=== PATIENT | female | born 1985 | race Caucasian/White ===

== ENCOUNTER 2018-02-27 16:21 | Emergency (ER) | payer OTHER ==
--- NOTE | 2018-02-27 17:47 | ERPHSYRPT ---
- History of Present Illness Historian: patient Exam Limitations: no limitations Patient Subjective Stated Complaint: Pt states for the last month she has intermittent pelvic pain. For the last 2 days her pain has been severe. She had an appt with her PCP today but the office had to cancel. She went to [facility] and they did a UA and a urine test. Both were negative. She states that she has always had irregular periods. She is concerned she might have PCOS. She also states that she has had abnormal paps in the past but has not had one for 3 years. She had a LEEP procedure done in 2009. Pt also states that she has had a loss of appetite and nausea. Denies any constipation, diarrhea, or vomiting. Pt also reports some pain with sex. Last time she had intercourse was Friday. Triage Nursing Assessment: Pt alert and oriented x3. skin pink warm and dry. afebrile. abdomen round, soft, and nontender. bowel sounds present x4 Timing/Duration: week(s) (4) Activities at Onset: none Quality: aching Abdominal Pain Onset Location: RLQ, LLQ Pain Radiation: no radiation Severity of Pain-Max: moderate Severity of Pain-Current: moderate Modifying Factors: Improves With: nothing Associated Symptoms: No back, No fever/chills, No nausea, No vomiting Previous symptoms: no prior history Hx Tetanus, Diphtheria Vaccination/Date Given: No Hx Influenza Vaccination/Date Given: No Hx Pneumococcal Vaccination/Date Given: No <AMI VILLAVICENCIO - Last Filed: 02/27/18 18:52> <LIAN LOPEZ - Last Filed: 02/27/18 21:07> - History of Present Illness Time Seen by Provider: 02/27/18 17:32 Physician History: The patient is a 32-year-old morbidly obese female complaining of intermittent bilateral pelvic pain for the last month. It has worsened over the last 2 days. She thought maybe she was because she has unprotected intercourse. She has never been . She took 2 home tests that were -2 days ago. She has been very emotional and mood is a last month. She was supposed to see her primary medical doctor today at 3:30 but could not see her due to the doctor having a flat tire. She went to see [facility] and they did minimal testing and says her here. The patient is concerned because she is obese and cannot get that she may have polycystic ovarian disease. She has irregular periods. At times she will have a monthly menstrual period for 2-3 months and then not have any menstrual periods for another 2-3 months. She has not seen a farm equipment mechanic for 3 years. She's had cervical cancer and a LEEP procedure. She denies fever or chills. She denies problems with urination. She would prefer to have a female doctor do an examination. (AMI VILLAVICENCIO) Allergies/Adverse Reactions: No Known Drug Allergies Allergy (Unverified 02/27/18 16:52) - Review of Systems Constitutional: No Fever, No Chills Eyes: No Symptoms Ears, Nose, & Throat: No Symptoms Respiratory: No Cough, No Dyspnea Cardiac: No Chest Pain, No Edema, No Syncope Abdominal/Gastrointestinal: Abdominal Pain, No Nausea, No Vomiting, No Diarrhea Genitourinary Symptoms: No Dysuria Musculoskeletal: No Back Pain, No Neck Pain Skin: No Rash Neurological: No Dizziness, No Focal Weakness, No Sensory Changes Psychological: No Symptoms Endocrine: No Symptoms Hematologic/Lymphatic: No Symptoms Immunological/Allergic: No Symptoms All Other Systems: Reviewed and Negative <AMI VILLAVICENCIO - Last Filed: 02/27/18 18:52> - Past Medical History Pertinent Past Medical History: Yes Cardiac History: Hypertension Psycho-Social History: Depression Other Medical History: cervical cancer cells - Past Surgical History Past Surgical History: Yes Other Surgical History: LEEP - Social History Smoking Status: Light tobacco smoker Exposure to second hand smoke: Yes Drug Use: none Patient Lives Alone: Yes - Female History Hx Last Menstrual Period: January 17, 2018 Hx Now: No <AMI VILLAVICENCIO - Last Filed: 02/27/18 18:52> - Physical Exam General Appearance: no apparent distress, alert Eye Exam: PERRL/EOMI, eyes nml inspection Ears, Nose, Throat Exam: normal ENT inspection, pharynx normal, moist mucous membranes Neck Exam: normal inspection, non-tender, supple, full range of motion Respiratory Exam: normal breath sounds, lungs clear, No respiratory distress Cardiovascular Exam: regular rate/rhythm, normal heart sounds Gastrointestinal/Abdomen Exam: tenderness (mild tenderness in LLQ and RLQ), other (obese) Pelvic Exam: not done Rectal Exam: not done Back Exam: normal inspection, normal range of motion, No CVA tenderness, No vertebral tenderness Extremity Exam: normal inspection, normal range of motion, pelvis stable Neurologic Exam: alert, oriented x 3, cooperative, normal mood/affect, nml cerebellar function, sensation nml, No motor deficits Skin Exam: normal color, warm, dry SpO2 Interpretation: normal SpO2: 94 Oxygen Delivery: Room Air <VILLAVICENCIOAMI BharathMarcus - Last Filed: 02/27/18 18:52> - Nursing Vital Signs Nursing Vital Signs: Initial Vital Signs Temperature 98.7 F 02/27/18 16:38 Pulse Rate 85 02/27/18 16:38 Respiratory Rate 18 02/27/18 16:38 Blood Pressure 170/104 02/27/18 16:38 O2 Sat by Pulse Oximetry 94 L 02/27/18 16:38 Pain Scale Pain Intensity 6 - Course Nursing assessment & vital signs reviewed: Yes <LIAN LOPEZ - Last Filed: 02/27/18 21:07> Ordered Tests: Active Orders 24 hr Category Date Time Status IV Insertion STAT Care 02/27/18 17:53 Active ABDOMEN AND PELVIS W/0 CONTRAS [CT] Stat Exams 02/27/18 18:51 Taken CBC W DIFF Stat Lab 02/27/18 18:05 Completed CMP Stat Lab 02/27/18 18:05 Completed CULTURE,URINE Stat Lab 02/27/18 21:00 Received HCG QUALITATIVE,SERUM Stat Lab 02/27/18 18:05 Completed LIPASE Stat Lab 02/27/18 18:05 Completed UA W/ MICROSCOPIC Stat Lab 02/27/18 21:00 Completed Urine Triage Profile Stat Lab 02/27/18 20:39 Ordered Medication Summary Discontinued Medications Generic Name Dose Route Start Last Admin Trade Name Johnq PRN Reason Stop Dose Admin Acetaminophen 975 mg 02/27/18 17:53 02/27/18 18:10 Tylenol 325 Mg PO 02/27/18 17:54 975 mg STAT ONE Administration Acetaminophen Confirm 02/27/18 17:59 Tylenol 325 Mg Administered 02/27/18 18:00 Dose 975 mg .ROUTE .STK-MED ONE Sodium Chloride 1,000 mls @ 999 mls/hr 02/27/18 17:53 02/27/18 18:12 Sodium Chloride 0.9% 1000 Ml IV 02/27/18 18:53 999 mls/hr .Q1H1M STA Administration Sodium Chloride Confirm 02/27/18 17:59 Sodium Chloride 0.9% 1000 Ml Administered 02/27/18 18:00 Dose 1,000 mls @ ud .ROUTE .[facility] ONE Ketorolac Tromethamine 30 mg 02/27/18 20:25 02/27/18 20:31 Toradol 30 Mg Injection IV 02/27/18 20:26 30 mg STAT ONE Administration Ketorolac Tromethamine Confirm 02/27/18 20:30 Toradol 30 Mg Injection Administered 02/27/18 20:31 Dose 30 mg .ROUTE .[facility] ONE Lab/Rad Data: Laboratory Result Diagrams 02/27/18 18:05 02/27/18 18:05 Laboratory Results 02/27/18 02/27/18 02/27/18 Range/Units 21:00 18:05 18:05 WBC (4.0-10.5) K/mm3 RBC (4.1-5.4) M/mm3 Hgb (12.0-16.0) gm/dl Hct (35-47) % MCV (78-100) fl MCH (26-32) pg MCHC (32-36) g/dl RDW (11.5-14.0) % Plt Count (150-450) K/mm3 MPV (6-9.5) fl Gran % (36.0-66.0) % Eos # (Auto) (0-0.5) Absolute Lymphs (auto) (1.0-4.6) Absolute Monos (auto) (0.0-1.3) Lymphocytes % (24.0-44.0) % Monocytes % (0.0-12.0) % Eosinophils % (0.00-5.0) % Basophils % (0.0-0.4) % Absolute Granulocytes (1.4-6.9) Basophils # (0-0.4) Sodium 144 (137-145) mmol/L Potassium 3.9 (3.5-5.1) mmol/L Chloride 105 (98-107) mmol/L Carbon Dioxide 27 (22-30) mmol/L Anion Gap 15.8 H (5-15) MEQ/L BUN 12 (7-17) mg/dL Creatinine 0.56 (0.52-1.04) mg/dL Estimated GFR > 60.0 ML/MIN Glucose 90 (74-106) mg/dL Calcium 9.7 (8.4-10.2) mg/dL Total Bilirubin 0.30 (0.2-1.3) mg/dL AST 27 (14-36) U/L ALT 29 (0-35) U/L Alkaline Phosphatase 122 (38-126) U/L Serum Total Protein 8.9 H (6.3-8.2) g/dL Albumin 4.8 (3.5-5.0) g/dL Lipase 137 (23-300) U/L Serum , Qual NEGATIVE (Negative) Ur Collection Type CCMS Urine Color YELLOW (YELLOW) Urine Appearance SLIGHTLY CLOUDY (CLEAR) Urine pH 6.0 (5-6) Ur Specific Whiting 1.020 (1.005-1.025) Urine Protein TRACE (Negative) Urine Ketones NEGATIVE (NEGATIVE) Urine Blood 250 (0-5) Hiram/ul Urine Nitrite NEGATIVE (NEGATIVE) Urine Bilirubin NEGATIVE (NEGATIVE) Urine Urobilinogen NORMAL (0-1) mg/dL Ur Leukocyte Esterase NEGATIVE (NEGATIVE) Urine Microscopic RBC >100 (0-2) /HPF Urine Microscopic WBC 0-2 (0-5) /HPF Ur Epithelial Cells FEW (FEW) /HPF Urine Bacteria RARE (NEGATIVE) /HPF Urine Culture Reflexed YES (NO) Urine Glucose NEGATIVE (NEGATIVE) mg/dL Specimen Received 02-27-18209902/27/18 Range/Units 18:05 WBC 11.5 H (4.0-10.5) K/mm3 RBC 5.51 H (4.1-5.4) M/mm3 Hgb 15.2 (12.0-16.0) gm/dl Hct 46.3 (35-47) % MCV 84.0 (78-100) fl MCH 27.5 (26-32) pg MCHC 32.8 (32-36) g/dl RDW 14.0 (11.5-14.0) % Plt Count 291 (150-450) K/mm3 MPV 11.3 H (6-9.5) fl Gran % 60.7 (36.0-66.0) % Eos # (Auto) 0.18 (0-0.5) Absolute Lymphs (auto) 3.64 (1.0-4.6) Absolute Monos (auto) 0.64 (0.0-1.3) Lymphocytes % 31.8 (24.0-44.0) % Monocytes % 5.6 (0.0-12.0) % Eosinophils % 1.6 (0.00-5.0) % Basophils % 0.3 (0.0-0.4) % Absolute Granulocytes 6.96 H (1.4-6.9) Basophils # 0.03 (0-0.4) Sodium (137-145) mmol/L Potassium (3.5-5.1) mmol/L Chloride (98-107) mmol/L Carbon Dioxide (22-30) mmol/L Anion Gap (5-15) MEQ/L BUN (7-17) mg/dL Creatinine (0.52-1.04) mg/dL Estimated GFR ML/MIN Glucose (74-106) mg/dL Calcium (8.4-10.2) mg/dL Total Bilirubin (0.2-1.3) mg/dL AST (14-36) U/L ALT (0-35) U/L Alkaline Phosphatase (38-126) U/L Serum Total Protein (6.3-8.2) g/dL Albumin (3.5-5.0) g/dL Lipase (23-300) U/L Serum , Qual (Negative) Ur Collection Type Urine Color (YELLOW) Urine Appearance (CLEAR) Urine pH (5-6) Ur Specific Whiting (1.005-1.025) Urine Protein (Negative) Urine Ketones (NEGATIVE) Urine Blood (0-5) Hiram/ul Urine Nitrite (NEGATIVE) Urine Bilirubin (NEGATIVE) Urine Urobilinogen (0-1) mg/dL Ur Leukocyte Esterase (NEGATIVE) Urine Microscopic RBC (0-2) /HPF Urine Microscopic WBC (0-5) /HPF Ur Epithelial Cells (FEW) /HPF Urine Bacteria (NEGATIVE) /HPF Urine Culture Reflexed (NO) Urine Glucose (NEGATIVE) mg/dL Specimen Received <AMI VILLAVICENCIO - Last Filed: 02/27/18 18:52> - Progress Progress: improved <LIAN LOPEZ - Last Filed: 02/27/18 21:07> - Progress Progress Note: 02/27/18 18:53 Pt care discussed and care transferred to Dr Lopez at 19:00. (AMI VILLAVICENCIO) 02/27/18 20:[address] abd/pelvis does not show any acute findings. The patient will F/U with [employer] for a pelvic exam. The patient is preferring to have a female doctor to perform the pelvic exam. Pt will be d/c home on toradol. 02/27/18 21:02 UA is within normal limits. Pt will be d/c home. (LIAN LOPEZ) <AMI VILLAVICENCIO - Last Filed: 02/27/18 18:52> - Departure Time of Disposition: 21:02 Departure Disposition: Home Critical Care Time: No <LIAN LOPEZ - Last Filed: 02/27/18 21:07> - Departure Clinical Impression: Abdominal pain Qualifiers: Abdominal location: left lower quadrant Qualified Code(s): R10.32 - Left lower quadrant pain Condition: Stable Referrals: ACOSTA AYOUB MD [Primary Care Provider] - CHAR SCRUGGS [ACTIVE STAFF] - Instructions: Acute Pelvic Pain (DC) Additional Instructions: Follow up with Dr Scruggs for lower abdominal pain and pelvic exam at your request Prescriptions: Ketorolac Tromethamine [Toradol] 10 mg PO QID PRN #20 tablet PRN Reason: Pain
[2018-02-27] MEDS ORDERED: TYLENOL 325 MG PO ONE (17:53)
[2018-02-27] MEDS ORDERED: Sodium Chloride 0.9% 1000 ML 1,000 ML IV STA (17:53)
[2018-02-27] MEDS ORDERED: TYLENOL 325 MG ONE (17:59)
[2018-02-27] MEDS ORDERED: Sodium Chloride 0.9% 1000 ML 1,000 ML ONE (17:59)
[2018-02-27 18:10] LABS: BASOPHIL % 0.3 % (0.0-0.4); Basophil (Absolute #) 0.03 (0-0.4); Eosinophil % 1.6 % (0.00-5.0); Eosinophil (Absolute #) 0.18 (0-0.5); Granulocyte Absolute (ANC) 6.96 (1.4-6.9); Granulocytes % 60.7 % (36.0-66.0); Hematocrit 46.3 % (35-47); Hemoglobin 15.2 gm/dl (12.0-16.0); Lymphocyte (Absolute #) 3.64 (1.0-4.6); Lymphocytes % 31.8 % (24.0-44.0); Mean Corpuscular Hemoglobin 27.5 pg (26-32); Mean Corpuscular Hgb Concent. 32.8 g/dl (32-36); Mean Platelet Volume 11.3 fl (6-9.5); Monocyte (Absolute #) 0.64 (0.0-1.3); Monocytes % 5.6 % (0.0-12.0); Platelet Count 291 K/mm3 (150-450); Red Blood Count 5.51 M/mm3 (4.1-5.4); White Blood Count 11.5 K/mm3 (4.0-10.5)
[2018-02-27 18:38] LABS: ALBUMIN 4.8 g/dL (3.5-5.0); ALKALINE PHOSPHATASE 122 U/L (38-126); ANION GAP 15.8 MEQ/L (5-15); BLOOD UREA NITROGEN 12 mg/dL (7-17); CHLORIDE 105 mmol/L (98-107); Calcium 9.7 mg/dL (8.4-10.2); Carbon Dioxide 27 mmol/L (22-30); Creatinine 1 0.56 mg/dL (0.52-1.04); Glucose 90 mg/dL (74-106); LIPASE 137 U/L (23-300); Potassium 3.9 mmol/L (3.5-5.1); SGOT/AST 27 U/L (14-36); SGPT/ALT 29 U/L (0-35); SODIUM 144 mmol/L (137-145); Total Protein 8.9 g/dL (6.3-8.2)
[2018-02-27] MEDS ORDERED: TORAdol 30 mg Injection IV ONE (20:25)
[2018-02-27] MEDS ORDERED: TORAdol 30 mg Injection ONE (20:30)
[2018-02-27 21:01] LABS: Appearance SLIGHTLY CLOUDY (CLEAR); Bacteria RARE /HPF (NEGATIVE); Bilirubin NEGATIVE (NEGATIVE); Blood 250 Ery/ul (0-5); Epithelial Cells FEW /HPF (FEW); Glucose NEGATIVE (NEGATIVE); Ketones NEGATIVE (NEGATIVE); Leukocyte Esterase NEGATIVE (NEGATIVE); Nitrite NEGATIVE (NEGATIVE); Protein,Urine Dip TRACE (Negative); RBC >100 /HPF (0-2); Urobilinogen NORMAL mg/dL (0-1); WBC 0-2 /HPF (0-5)
[2018-02-27 21:08] LABS: Amphetamine,Urine NEGATIVE (NEGATIVE); Barbiturate,Urine NEGATIVE (NEGATIVE); Benzodiazepine,Urine NEGATIVE (NEGATIVE); Cocaine,Urine NEGATIVE (NEGATIVE); Methadone,Urine NEGATIVE (NEGATIVE); Opiate,Urine NEGATIVE (NEGATIVE); PCP,Urine NEGATIVE (NEGATIVE); THC,Urine NEGATIVE (NEGATIVE)
[2018-02-27 21:21] VITALS: BP 155/106; PULSE 72; O2SAT 99
--- NOTE | 2018-02-28 21:28 | XRAY ---
Indication: Pelvic pain 1 month, left greater than right. Nausea. Lack of appetite. Multiple contiguous axial images obtained through the abdomen and pelvis without contrast as ordered. Comparison: None There are 2 subcentimeter noncalcified nodules in the right lung base presumed granulomatous in this demographic. No infiltrate or effusion. Heart is not enlarged. Noncontrasted stomach and bowel loops appear nonobstructed. Normal appendix. No free fluid/air. Spleen is enlarged measuring 13.3 cm in greatest axial dimension. Diffuse fatty liver. Remaining liver, gallbladder, pancreas, spleen, adrenal glands, kidneys, ureters, bladder, uterus, and aorta appear unremarkable for noncontrast exam. Osseous structures intact. Impression: 1. Splenomegaly and fatty liver. 2. No acute intra-abdominal/pelvic abnormalities on this noncontrasted exam. 2. Right lung base subcentimeter noncalcified nodules probably granulomatous. Comment: Preliminary interpretation was made by [facility]. No critical discrepancy. CTDI 28.13
== END 2018-02-27 21:21 | disposition home or self-care (01) ==
LOC: ED 16:21
DX: R10.31 Right lower quadrant pain (principal); R10.32 Left lower quadrant pain
CPT/HCPCS: 36000; 36415; 74176; 80053; 80307; 81000; 83690; 84703; 85025; 87086; 96360; 96361; 96374; 99284; J1885; A9270-GY

== ENCOUNTER 2019-10-05 22:04 | Emergency (ER) | payer OTHER ==
--- NOTE | 2019-10-05 22:07 | ERPHSYRPT ---
- History of Present Illness Time Seen by Provider: 10/05/19 22:07 Source: patient Exam Limitations: no limitations Physician History: This is a right-handed 34-year-old white female who presents with 2-day history of right shoulder pain. Patient reached into the backseat of her car 2 days ago and felt a pop and then pain. The pain has persisted and worsened today. Patient attempted to obtain an appointment from her primary care physician earlier today but was unable to obtain one. 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 in her back seat) Quality: aching Severity of Pain-Max: moderate Severity of Pain-Current: moderate Extremities Pain Location: shoulder: right Modifying Factors: Improves With: movement Associated Symptoms: none Allergies/Adverse Reactions: No Known Drug Allergies Allergy (Verified 10/05/19 22:24) Hx Tetanus, Diphtheria Vaccination/Date Given: No Hx Influenza Vaccination/Date Given: No Hx Pneumococcal Vaccination/Date Given: No Travel Risk - International Travel Have you traveled outside of the country in past 3 weeks: No Have you or anyone close to you been diagnosed with or: No Do your reside in a community with a known COVID-19 case?: Yes If Yes where:: [facility] - Coronavirus Screening Has patient experienced Coronavirus symptoms: No - Review of Systems Constitutional: No Symptoms Eyes: No Symptoms Ears, Nose, & Throat: No Symptoms Respiratory: No Symptoms Cardiac: No Symptoms Abdominal/Gastrointestinal: No Symptoms Genitourinary Symptoms: No Symptoms Musculoskeletal: Injury (Shoulder on right), Joint Pain (Right shoulder) Skin: No Symptoms Neurological: No Symptoms Psychological: No Symptoms Endocrine: No Symptoms Hematologic/Lymphatic: No Symptoms Immunological/Allergic: No Symptoms All Other Systems: Reviewed and Negative - Past Medical History Pertinent Past Medical History: Yes Neurological History: No Pertinent History ENT History: No Pertinent History Cardiac History: Hypertension Respiratory History: No Pertinent History Endocrine Medical History: No Pertinent History Musculoskeletal History: No Pertinent History GI Medical History: No Pertinent History History: No Pertinent History Psycho-Social History: Depression Other Medical History: cervical cancer cells - Past Surgical History Past Surgical History: Yes Neuro Surgical History: No Pertinent History Cardiac: No Pertinent History Respiratory: No Pertinent History Gastrointestinal: No Pertinent History Genitourinary: No Pertinent History Musculoskeletal: No Pertinent History Female Surgical History: No Pertinent History Other Surgical History: LEEP - Social History Smoking Status: Light tobacco smoker Exposure to second hand smoke: Yes Drug Use: none Patient Lives Alone: Yes - Nursing Vital Signs Nursing Vital Signs: Initial Vital Signs Temperature 97.6 F 10/05/19 22:10 Pulse Rate 82 10/05/19 22:10 Respiratory Rate 17 10/05/19 22:10 Blood Pressure 174/116 10/05/19 22:10 O2 Sat by Pulse Oximetry 98 10/05/19 22:10 Pain Scale Pain Intensity 8 - Physical Exam General Appearance: no apparent distress, alert, anxiety Eyes, Ears, Nose, Throat Exam: normal ENT inspection, moist mucous membranes Neck Exam: normal inspection, non-tender, supple, full range of motion Cardiovascular/Respiratory Exam: chest non-tender Abdominal Exam: non-tender Back Exam: normal inspection, normal range of motion, No CVA tenderness, No vertebral tenderness Shoulder Exam: normal inspection, no evidence of injury, normal ROM, pain Elbow/Forearm Exam: normal inspection, non-tender, no evidence of injury, normal ROM Wrist Exam: normal inspection, non-tender, no evidence of injury, normal ROM Hand Exam: normal inspection, non-tender, no evidence of injury, normal ROM Neuro/Tendon Exam: normal sensation, normal motor functions, normal tendon functions Mental Status Exam: alert, oriented x 3, cooperative Skin Exam: normal color, warm, dry SpO2 Interpretation: normal O2 Delivery: Room Air - Course Nursing assessment & vital signs reviewed: Yes Ordered Tests: Active Orders 24 hr Category Date Time Status Isolation, Initiate & Maintain Q4H Care 10/05/19 22:23 Active SHOULDER Stat Exams 10/05/19 22:21 Taken - Progress Progress: unchanged Progress Note: 10/05/19 22:51 X-ray of right shoulder reveals no evidence of any acute fracture or dislocation Counseled pt/family regarding: diagnosis, need for follow-up, rad results - Departure Departure Disposition: Home Clinical Impression: Strain of right shoulder Condition: Stable Critical Care Time: No Referrals: ACOSTA AYOUB MD [ACTIVE STAFF] - [facility]-Ortho M-F [phone] Additional Instructions: Follow-up with your primary care physician or [facility] orthopedic clinic Friday through Friday 8 AM to noon for further management. Take your medication as prescribed. Wear sling for comfort Prescriptions: Cyclobenzaprine HCl 10 mg [Cyclobenzaprine 10 MG] 10 mg PO TID #10 tablet Prednisone 10 mg [Deltasone 10 mg] 10 mg PO TID #12 tablet
[2019-10-05] MEDS ORDERED: PERCOCET TABLET 5/325MG PO STA (22:51)
[2019-10-05] MEDS ORDERED: PERCOCET TABLET 5/325MG ONE (22:53)
[2019-10-05 23:00] VITALS: BP 166/115; PULSE 77; O2SAT 96
--- NOTE | 2019-10-06 08:25 | XRAY ---
Indication: Pain following injury 2 days ago. Comparison: None 3 views of the right shoulder obtained. No bony, articular, or soft tissue abnormalities.
== END 2019-10-05 23:08 | disposition home or self-care (01) ==
LOC: ED 22:04
DX: S46.119A Strain of muscle, fascia and tendon of long head of biceps, unspecified arm, initial encounter (principal); M25.511 Pain in right shoulder; I10 Essential (primary) hypertension
CPT/HCPCS: 73030; 99283; A9270-GY